=== PATIENT | female | born 1950 | race Caucasian/White ===

== ENCOUNTER 2017-07-17 08:15 | Outpatient (CLI) | payer MEDICARE ==
[2017-07-17] MEDS ORDERED: Iopamidol 370 76% 100 ML VIAL ONE (16:02)
== END 2017-07-17 08:16 | disposition home or self-care (01) ==
LOC: BICCT 08:15
PROVIDERS: ATTEND Internal Medicine Sleep Medicine
DX: R59.0 Localized enlarged lymph nodes (principal); R91.1 Solitary pulmonary nodule
CPT/HCPCS: 71260

== ENCOUNTER 2018-04-04 09:56 | Outpatient (CLI) | payer MEDICARE | END 2018-04-04 09:57 | disposition home or self-care (01) | LOC: BICMAMMO 09:56 | PROVIDERS: ATTEND Obstetrics & Gynecology | DX: Z12.31 Encounter for screening mammogram for malignant neoplasm of breast (principal); Z80.3 Family history of malignant neoplasm of breast | CPT/HCPCS: 77063; 77067 ==

== ENCOUNTER 2018-08-21 13:26 | Outpatient (CLI) | payer MEDICARE ==
--- NOTE | 2018-08-21 15:25 | CT ---
EXAM: Chest CT scan With contrast: HISTORY: Mediastinal adenopathy, follow-up COMPARISON: 07/17/2017 FINDINGS: There are some borderline size mediastinal lymph nodes and minimally enlarged right hilar nodes and s ome borderline left hilar nodes as well as some mildly enlarged axillary nodes bilaterally but overal l stable. Very small 0.2 x 0.4 cm stable nodule in the right apex. Small stable hiatal hernia. No pleural or pericardial effusion. The visualized upper abdomen is unremarkable. IMPRESSION: Stable appearing mediastinal, hilar, and axillary lymph nodes. Tiny stable nodule in the right lung apex. No significant change.
[2018-08-21] MEDS ORDERED: ISOVUE-370 76%-LOCM 1 ML ONE (16:54)
== END 2018-08-21 13:27 | disposition home or self-care (01) ==
LOC: BICCT 13:26
PROVIDERS: ATTEND Internal Medicine Pulmonary Disease
DX: R59.0 Localized enlarged lymph nodes (principal); R91.1 Solitary pulmonary nodule
CPT/HCPCS: 71260; 82565

== ENCOUNTER 2019-04-08 11:11 | Outpatient (CLI) | payer MEDICARE ==
--- NOTE | 2019-04-08 16:57 | MMO ---
Bilateral MAMMO Bilat Screen [facility]. CLINICAL HISTORY: Patient is 69 years old and is seen for screening. The patient has the following family history of breast cancer: mother; paternal grandfather and paternal aunt. The patient has no personal history of cancer. VIEWS: The views performed were: bilateral craniocaudal with tomosynthesis and bilateral mediolateral oblique with tomosynthesis. FILMS COMPARED: The present examination has been compared to prior imaging studies performed at [facility] on 03/10/2015, 03/23/2016, 03/27/2017 and 04/04/2018. This study has been interpreted with the assistance of computer-aided detection. MAMMOGRAM FINDINGS: There are scattered fibroglandular densities. There are no suspicious masses, suspicious calcifications, or new areas of architectural distortion. IMPRESSION: THERE IS NO MAMMOGRAPHIC EVIDENCE OF MALIGNANCY. A ROUTINE FOLLOW-UP MAMMOGRAM IN 1 YEAR IS RECOMMENDED. THE RESULTS OF THIS EXAM WERE SENT TO THE PATIENT. ACR BI-RADS Category 1 - Negative MAMMOGRAPHY NOTE: 1. A negative mammogram report should not delay a biopsy if a dominant of clinically suspicious mass is present. 2. Approximately 10% to 15% of breast cancers are not detected by mammography. 3. Adenosis and dense breasts may obscure an underlying neoplasm. Reported by: CEDRIKC KINCAID MD Electonically Signed: [id number]
== END 2019-04-08 11:12 | disposition home or self-care (01) ==
LOC: BICMAMMO 11:11
PROVIDERS: ATTEND Obstetrics & Gynecology
DX: Z12.31 Encounter for screening mammogram for malignant neoplasm of breast (principal); Z80.3 Family history of malignant neoplasm of breast
CPT/HCPCS: 77063; 77067

== ENCOUNTER 2019-07-22 13:00 | Outpatient (CLI) | payer MEDICARE, OTHER ==
--- NOTE | 2019-07-22 13:46 | CT ---
CT OF THE CHEST WITH IV CONTRAST INDICATION: Follow-up lymphadenopathy of the chest COMPARISON: CT of the thorax dated 07/17/2017 and 08/21/2018 FINDINGS: CHEST: Lungs: No suspicious nodule, airspace consolidation or mass is demonstrated. Small subcentimeter pulm onary nodule in the right lung apex on image 14 of series 3 is stable and likely benign. Pleural space: No effusion. Mediastinum: The shotty appearing mediastinal lymph nodes are stable appearing. The largest lymph nod e is seen within the right suprahilar region measuring 1.4 cm. Other mildly prominent hilar lymph nodes and axillary lymph nodes are stable. There are coronary artery and thoracic aortic calcificatio ns. Upper abdomen:Adrenal glands are normal appearing. Visualized aspects of the liver, spleen, pancreas and kidneys appear within normal limits. Osseous structures: No acute osseous abnormality. No destructive osteolytic or osteoblastic lesion i s identified. There is scattered degenerative and osteoarthritic changes. Soft tissues:Normal. IMPRESSION: 1. Stable shotty appearing lymph nodes in the mediastinum, hilar and axillary regions. 2. Benign pulmonary nodule of the right lung apex.
[2019-07-22] MEDS ORDERED: Iopamidol-370 76% 500 ML 1 ML ONE (14:53)
== END 2019-07-22 13:01 | disposition home or self-care (01) ==
LOC: BICCT 13:00
PROVIDERS: ATTEND Internal Medicine Pulmonary Disease
DX: R05 Cough (principal); R91.1 Solitary pulmonary nodule
CPT/HCPCS: 71260; Q9967

== ENCOUNTER 2020-04-13 10:34 | Outpatient (CLI) | payer MEDICARE ==
--- NOTE | 2020-04-13 11:09 | MMO ---
Bilateral MAMMO Bilat Screen [facility]. CLINICAL HISTORY: Patient is 70 years old and is seen for screening. The patient has the following family history of breast cancer: mother; paternal grandfather and paternal aunt. The patient has no personal history of cancer. VIEWS: The views performed were: bilateral craniocaudal with tomosynthesis and bilateral mediolateral oblique with tomosynthesis. FILMS COMPARED: The present examination has been compared to prior imaging studies performed at [facility] on 03/23/2016, 03/27/2017, 04/04/2018 and 04/08/2019. This study has been interpreted with the assistance of computer-aided detection. MAMMOGRAM FINDINGS: There are scattered fibroglandular densities. 1.5 cm mass upper outer left breast. Recommend left breast ultrasound. In the right breast, there are no suspicious masses, calcifications or areas of architectural distortion. IMPRESSION: FINDING IN THE LEFT BREAST REQUIRES ADDITIONAL EVALUATION. AN ULTRASOUND EXAM IS RECOMMENDED. THE RESULTS OF THIS EXAM WERE SENT TO THE PATIENT. ACR BI-RADS Category 0 - Incomplete: Need additional imaging evaluation. [facility] will notify the patient of the need for additional imaging services. MAMMOGRAPHY NOTE: 1. A negative mammogram report should not delay a biopsy if a dominant of clinically suspicious mass is present. 2. Approximately 10% to 15% of breast cancers are not detected by mammography. 3. Adenosis and dense breasts may obscure an underlying neoplasm. Reported by: FREEMAN STERN MD Electonically Signed: [id number]
== END 2020-04-13 10:35 | disposition home or self-care (01) ==
LOC: BICMAMMO 10:34
PROVIDERS: ATTEND Obstetrics & Gynecology
DX: Z12.31 Encounter for screening mammogram for malignant neoplasm of breast (principal); Z80.3 Family history of malignant neoplasm of breast
CPT/HCPCS: 77063; 77067

== ENCOUNTER 2020-04-24 14:36 | Outpatient (CLI) | payer MEDICARE ==
--- NOTE | 2020-04-24 15:26 | ULT ---
LIMITED LEFT BREAST ULTRASOUND: HISTORY: Abnormal mammogram of 04/13/2020. FINDINGS: Sonographic evaluation of the left upper outer breast demonstrates a 1.7 x 1.4 x 0.6 cm cyst at the 2 o'clock position, 7 mm from the nipple, corresponding to the mammographic finding. IMPRESSION: BIRADS category 2 - benign findings. Return to annual mammographic screening. POS: OFF
== END 2020-04-24 14:37 | disposition home or self-care (01) ==
LOC: BICMAMMO 14:36
PROVIDERS: ATTEND Obstetrics & Gynecology
DX: R92.8 Other abnormal and inconclusive findings on diagnostic imaging of breast (principal); N60.02 Solitary cyst of left breast

== ENCOUNTER 2020-04-24 14:43 | Outpatient (CLI) | payer MEDICARE ==
--- NOTE | 2020-04-24 15:20 | BD ---
DEXA BONE DENSITY STUDY: HISTORY: Postmenopausal. FINDINGS: Lumbar Spine: BMD (g/cm2) L1 1.187 T-Score: +1.8 L2 1.423 T-Score: +3.6 L3 1.375 T-Score: +2.6 L4 1.455 T-Score: +3.6 L1-L4 1.364 T-Score: +2.9 Femoral Neck: 0.832 T-Score: -0.1 Total Femur: 1.036 T-Score: +0.8 Impression: Normal bone mineral density of the lumbar spine and left femoral neck. POS: AH
== END 2020-04-24 14:44 | disposition home or self-care (01) ==
LOC: BICMAMMO 14:43
PROVIDERS: ATTEND Obstetrics & Gynecology
DX: Z13.820 Encounter for screening for osteoporosis (principal); M85.80 Other specified disorders of bone density and structure, unspecified site; M81.0 Age-related osteoporosis without current pathological fracture; Z79.890 Hormone replacement therapy
CPT/HCPCS: 77080

== ENCOUNTER 2021-03-02 10:13 | Outpatient (CLI) | payer MEDICARE | END 2021-03-02 10:14 | disposition home or self-care (01) | LOC: RAD 10:13 | PROVIDERS: ATTEND Internal Medicine Pulmonary Disease | DX: R06.00 Dyspnea, unspecified (principal) | CPT/HCPCS: 71046 ==

== ENCOUNTER 2021-05-26 13:08 | Outpatient (CLI) | payer MEDICARE | END 2021-05-26 13:09 | disposition home or self-care (01) | LOC: BICMAMMO 13:08 | PROVIDERS: ATTEND Family Medicine | DX: Z12.31 Encounter for screening mammogram for malignant neoplasm of breast (principal); Z80.3 Family history of malignant neoplasm of breast | CPT/HCPCS: 77063; 77067 ==

== ENCOUNTER 2022-03-02 10:14 | Outpatient (CLI) | payer MEDICARE | END 2022-03-02 10:15 | disposition home or self-care (01) | LOC: RAD 10:14 | PROVIDERS: ATTEND Internal Medicine Critical Care Medicine | DX: R06.00 Dyspnea, unspecified (principal) | CPT/HCPCS: 71046 ==

== ENCOUNTER 2022-04-05 12:48 | Outpatient (CLI) | payer MEDICARE, OTHER | END 2022-04-05 12:49 | disposition home or self-care (01) | LOC: SCSMRI 12:48 | PROVIDERS: ATTEND Specialist | DX: M51.17 Intervertebral disc disorders with radiculopathy, lumbosacral region (principal); M47.22 Other spondylosis with radiculopathy, cervical region; M48.02 Spinal stenosis, cervical region; M50.321 Other cervical disc degeneration at C4-C5 level; M50.322 Other cervical disc degeneration at C5-C6 level; M50.323 Other cervical disc degeneration at C6-C7 level; M47.813 Spondylosis without myelopathy or radiculopathy, cervicothoracic region; M48.03 Spinal stenosis, cervicothoracic region; M47.27 Other spondylosis with radiculopathy, lumbosacral region; M51.36 Other intervertebral disc degeneration, lumbar region; M47.816 Spondylosis without myelopathy or radiculopathy, lumbar region; M43.16 Spondylolisthesis, lumbar region; M48.061 Spinal stenosis, lumbar region without neurogenic claudication; M48.07 Spinal stenosis, lumbosacral region | CPT/HCPCS: 72141; 72148 ==

== ENCOUNTER 2022-04-17 21:00 | Emergency (ER) | payer MEDICARE, OTHER ==
[2022-04-17 21:42] LABS: #Eosinphils 0.4 thou/uL (0.0-0.7); #Lymphocytes 3.3 thou/uL (1.20-3.40); #Neutrophils 7.7 thou/uL (1.40-6.50); %Basophils 0.3 % (0.0-1.0); %Lymphocytes 26.5 % (21.0-51.0); %Monocytes 8.2 % (0.0-10.0); Hemoglobin 11.3 g/dL (12.0-16.0); Mean Corpuscular HGB CONC 32.3 g/dL (32.0-36.0); Mean Corpuscular Hemoglobin 25.7 pg (27.0-31.0); Mean Corpuscular Volume 79.6 fl (78.0-98.0); Mean Platelet Volume 8.4 fL (7.4-10.4); Platelet Count 228 10x3/uL (130-400); RBC Distribution Width 15.1 % (11.5-14.5); Red Blood Cell (RBC) Count 4.41 mill/uL (4.20-5.40); White Blood Cell (WBC) Count 12.4 10x3/uL (4.8-10.8)
[2022-04-17 21:57] LABS: ALT (SGPT) 26 U/L (8-55); AST (SGOT) 22 U/L (5-34); Albumin 4.1 g/dL (3.4-4.8); Alkaline Phosphatase 120 U/L (40-110); Anion Gap 13 mmol/L (10-20); BUN (Urea Nitrogen) 12 mg/dL (9.8-20.1); Bilirubin, Total 0.2 mg/dL (0.2-1.2); Calc. Creatinine Clearance 0 mL/min (70-130); Calcium 9.5 mg/dL (7.8-10.44); Carbon Dioxide 25 mmol/L (23-31); Chloride 103 mmol/L (98-107); Estimated GFR 83; Globulin 3.2 g/dL (2.4-3.5); Glucose 121 mg/dL (83-110); Protein, Total 7.3 g/dL (5.8-8.1); Sodium 137 mmol/L (136-145)
[2022-04-18] MEDS ORDERED: cloNIDine 0.1 MG TAB ONE (00:34)
[2022-04-18 01:09] LABS: Troponin I Less than 0.010 ng/mL (< 0.028)
== END 2022-04-18 02:02 | disposition home or self-care (01) ==
LOC: ERS 21:00
DX: I10 Essential (primary) hypertension (principal); R07.9 Chest pain, unspecified; E03.9 Hypothyroidism, unspecified; K21.9 Gastro-esophageal reflux disease without esophagitis; Z79.899 Other long term (current) drug therapy
CPT/HCPCS: 36415; 71045; 80053; 83880; 84484; 85025; 93005

== ENCOUNTER 2022-05-17 14:18 | Outpatient (CLI) | payer BC, MEDICARE, OTHER | END 2022-05-17 14:19 | disposition home or self-care (01) | LOC: BICMAMMO 14:18 | PROVIDERS: ATTEND Nurse Practitioner Family | DX: N64.4 Mastodynia (principal) | CPT/HCPCS: 76642; 77066; G0279 ==

== ENCOUNTER 2022-05-31 09:11 | Outpatient (CLI) | payer MEDICARE | END 2022-05-31 09:12 | disposition home or self-care (01) | LOC: BICMRI 09:11 | PROVIDERS: ATTEND Nurse Practitioner Family | DX: R92.8 Other abnormal and inconclusive findings on diagnostic imaging of breast (principal); N60.01 Solitary cyst of right breast; N60.02 Solitary cyst of left breast | CPT/HCPCS: 82565; A9577; C8908 ==

== ENCOUNTER 2023-03-11 11:46 | Emergency (ER) | payer BC, MEDICARE ==
[2023-03-11 14:19] LABS: #Monocytes 1.3 thou/uL (0.11-0.59); #Neutrophils 14.1 thou/uL (1.40-6.50); %Basophils 0.1 % (0.0-1.0); %Eosinophils 0.1 % (0.0-10.0); %Lymphocytes 8.5 % (21.0-51.0); %Monocytes 7.7 % (0.0-10.0); %Neutrophils 83.2 % (42.0-75.0); Hematocrit 29.7 % (36.0-47.0); Hemoglobin 8.8 g/dL (12.0-16.0); Mean Corpuscular HGB CONC 29.6 g/dL (32.0-36.0); Mean Corpuscular Hemoglobin 21.9 pg (27.0-31.0); Mean Corpuscular Volume 73.9 fl (78.0-98.0); Mean Platelet Volume 9.8 fL (7.4-10.4); Platelet Count 367 10x3/uL (130-400); RBC Distribution Width 16.1 % (11.5-14.5); Red Blood Cell (RBC) Count 4.02 mill/uL (4.20-5.40); White Blood Cell (WBC) Count 16.9 10x3/uL (4.8-10.8)
[2023-03-11 14:37] LABS: Anisocytosis SLIGHT = 6-15 cells HPF (0-5); CellaVision Operator ID LAB.MJL; Hypochromia SLIGHT = 6-15 cells HPF (0-5); Microcytosis SLIGHT = 6-15 cells HPF (0-5); Ovalocytes SLIGHT = 2-5 cells HPF (0-1); Platelet Adequacy Comment Platelets Normal; Polychromasia SLIGHT = 2-3 cells HPF (0-2)
[2023-03-11 14:45] LABS: ALT (SGPT) 25 U/L (8-55); AST (SGOT) 19 U/L (5-34); Albumin 4.4 g/dL (3.4-4.8); Alkaline Phosphatase 104 U/L (40-110); Anion Gap 16 mmol/L (10-20); BUN (Urea Nitrogen) 14 mg/dL (9.8-20.1); Bilirubin, Total 0.3 mg/dL (0.2-1.2); CK (CPK) 54 U/L (29-168); Calc. Creatinine Clearance 0 mL/min (70-130); Calcium 9.8 mg/dL (7.8-10.44); Carbon Dioxide 23 mmol/L (23-31); Chloride 100 mmol/L (98-107); Estimated GFR 70; Globulin 3.6 g/dL (2.4-3.5); Glucose 201 mg/dL (83-110); Lipase 4 U/L (8-78); Potassium 3.4 mmol/L (3.5-5.1); Sodium 136 mmol/L (136-145)
[2023-03-11 15:01] LABS: Bacteria/HPF None Seen HPF (None Seen); Bilirubin Negative (Negative); Blood, Urine Negative (Negative); CAUTI Indications for Culture Pelvic or flank pain; Clarity Clear (Clear); Glucose, Urine (Dipstick) Normal (Negative); Ketone, Urine Negative (Negative); Leukocyte Negative Leu/uL (Negative); Nitrite Negative (Negative); Protein, Urine (Dipstick) 20 mg/dL (Neg-Trace); RBC/HPF 0-3 HPF (0-3); Specific Gravity, Urine 1.026 (1.002-1.036); Squamous Epithelial 0-3 HPF (0-3); Urobilinogen Normal mg/dL (Less than 2); WBC/HPF 0-3 HPF (0-3)
[2023-03-11 15:03] LABS: Urine Culture Reflex No No
[2023-03-11] MEDS ORDERED: Morphine 4 MG/ML VIAL ONE (15:12)
[2023-03-11] MEDS ORDERED: predniSONE 20 MG TAB ONE (15:12)
[2023-03-11] MEDS ORDERED: Ketorolac Tromethamine 30 MG/ML VIAL ONE (15:13)
== END 2023-03-11 16:40 | disposition home or self-care (01) ==
LOC: ERS 11:46
DX: M54.9 Dorsalgia, unspecified (principal); E03.9 Hypothyroidism, unspecified; K21.9 Gastro-esophageal reflux disease without esophagitis; I10 Essential (primary) hypertension
CPT/HCPCS: 36415; 72131; 80053; 81001; 82550; 83690; 85025; 96372; J1885; J2270; J7512

== ENCOUNTER 2023-08-08 09:40 | Outpatient (CLI) | payer MEDICARE ==
[2023-08-08 10:34] LABS: Hematocrit 38.3 % (34.9-44.5); Hemoglobin 12.9 g/dL (12.0-15.5); Mean Corpuscular HGB CONC 33.7 g/dL (32.0-36.0); Mean Corpuscular Hemoglobin 30.4 pg (27.0-33.0); Mean Corpuscular Volume 90.3 fl (81.6-98.3); Mean Platelet Volume 10.1 fl (7.4-10.4); Platelet Count 263 10x3/uL (150-450); RBC Distribution Width 13.1 % (11.5-14.5); Red Blood Cell (RBC) Count 4.24 10x6/uL (3.90-5.03); White Blood Cell (WBC) Count 9.3 10x3/uL (3.5-10.5)
[2023-08-08 10:59] LABS: INR-International Normal Ratio 0.9; PTT 29.1 sec (22.0-33.0); Prothrombin Time 10.2 sec (9.5-12.1)
[2023-08-08 11:07] LABS: Anion Gap 12 mmol/L (10-20); BUN (Urea Nitrogen) 14 mg/dL (9.8-20.1); Calc. Creatinine Clearance 0 mL/min (70-130); Calcium 9.9 mg/dL (7.8-10.44); Carbon Dioxide 26 mmol/L (23-31); Chloride 103 mmol/L (98-107); Estimated GFR 75; Glucose 89 mg/dL (83-110); Potassium 4.3 mmol/L (3.5-5.1); Sodium 137 mmol/L (136-145)
== END 2023-08-08 09:41 | disposition home or self-care (01) ==
LOC: LABBT 09:40
PROVIDERS: ATTEND Surgery
DX: Z01.818 Encounter for other preprocedural examination (principal); M48.061 Spinal stenosis, lumbar region without neurogenic claudication; M54.16 Radiculopathy, lumbar region
CPT/HCPCS: 80048; 85027; 85610; 85730; 93005; 93010

== ENCOUNTER 2023-08-10 09:38 | Inpatient (IN) | payer MEDICARE ==
[2023-08-08 10:09] VITALS: BMI 37.5
[2023-08-10] MEDS ORDERED: PROPOFOL 20 ML ONE (10:48)
[2023-08-10] MEDS ORDERED: Fentanyl 250 MCG/5 ML VIAL ONE (10:48)
[2023-08-10] MEDS ORDERED: Thrombin 5000 UNITS/5 ML VIAL ONE (11:29)
[2023-08-10] MEDS ORDERED: Vancomycin 1 GM VIAL ONE (11:29)
[2023-08-10] MEDS ORDERED: Dexamethasone 20 MG/5 ML VIAL ONE (11:32)
[2023-08-10] MEDS ORDERED: Ondansetron PF 4 MG/2 ML Vial ONE (11:32)
[2023-08-10] MEDS ORDERED: Albumin 5% 500 ML ONE (11:38)
[2023-08-10] MEDS ORDERED: Sodium Chloride 0.9% 100 ML ONE (11:39)
[2023-08-10] MEDS ORDERED: CEFAZOLIN 2 GM VIAL ONE (11:39)
[2023-08-10] MEDS ORDERED: Ketorolac Tromethamine 30 MG (1 mL) VIAL ONE (11:50)
[2023-08-10] MEDS ORDERED: Rocuronium Bromide 10 MG/ML (10ML VIAL) ONE (11:50)
[2023-08-10] MEDS ORDERED: Glycopyrrolate 0.2 MG/ML 5 ML SYRINGE ONE (12:26)
[2023-08-10] MEDS ORDERED: PHENYLEPHRINE-NS 100 MCG/ML 10 ML SYRINGE ONE ×2 (12:37→14:02)
[2023-08-10] MEDS ORDERED: Esmolol 100 MG/10 ML VIAL ONE (12:45)
[2023-08-10] MEDS ORDERED: SUGAMMADEX SODIUM 200 MG/2 ML VIAL ONE (13:42)
[2023-08-10] MEDS ORDERED: Acetaminophen/Codeine 30-300mg Tablet PO PRN (14:33)
[2023-08-10] MEDS ORDERED: diphenhydrAMINE 25 MG CAP PO PRN (14:33)
[2023-08-10] MEDS ORDERED: Acetaminophen 325 MG TAB PO PRN (14:33)
[2023-08-10] MEDS ORDERED: Milk Of Magnesia 30 ML UDCUP PO PRN (14:33)
[2023-08-10] MEDS ORDERED: traMADol HCl 50 MG TAB PO PRN (14:33)
[2023-08-10] MEDS ORDERED: Promethazine HCl 12.5 MG in Sodium Chloride 0.9% 50 ML IVPB PRN (14:37)
[2023-08-10] MEDS ORDERED: hydrALAZINE 20 MG/ML VIAL SLOW IVP PRN (14:38)
[2023-08-10] MEDS ORDERED: Non-Formulary Item 1 EACH (Lansoprazole [Prevacid] 30 MG Capsule.Dr) PO PRN (14:40)
[2023-08-10] MEDS ORDERED: Fluticasone Propionate Nasal Spray 16 gm Bottle NASAL PRN (14:50)
[2023-08-10] MEDS ORDERED: Azelastine 137 MCG/NASAL Spray 30 ML NS PRN (14:51)
[2023-08-10] MEDS: HYDROcodone/Acetaminophen 7.5/325 mg Tablet PO PRN (16:39)
[2023-08-10] MEDS: Morphine 2 MG/ML VIAL SLOW IVP PRN (18:00)
[2023-08-10] MEDS: Sodium Chloride 0.9% 1,000 ML IV SCH (18:27)
[2023-08-10] MEDS: Mometasone 100 MCG/Formoterol 5 MCG 120 PUFF INHALER INH SCH (19:18)
[2023-08-10] MEDS: Ascorbic Acid 500 mg Chewable Tablet PO SCH (20:43)
[2023-08-10] MEDS: Losartan 25 MG TAB PO SCH (20:43)
[2023-08-10] MEDS: Multivit, Therapeutic 1 TAB PO SCH (20:44)
[2023-08-10] MEDS: Hydrochlorothiazide 25 MG TAB PO SCH (20:44)
[2023-08-10] MEDS: Zinc Sulfate 220 MG CAP PO SCH (20:44)
[2023-08-10] MEDS: CEFAZOLIN 2 GM in Sodium Chloride 0.9% 100 ML IVPB SCH (20:47)
[2023-08-10] MEDS: Calcium Carbonate 600 MG TAB PO SCH (21:39)
[2023-08-10] MEDS: Multivitamin w/Zinc Stress 1 TAB PO SCH (21:39)
[2023-08-11 05:09] LABS: #Basophils Less than 0.03 10x3/uL (0.0-0.2); #Eosinphils Less than 0.03 10x3/uL (0.0-0.7); %Basophils 0.1 % (0.0-1.0); %Eosinophils 0.1 % (0.0-10.0); %Lymphocytes 10.3 % (21.0-51.0); %Monocytes 5.9 % (0.0-10.0); %Neutrophils 83.2 % (42.0-75.0); Hematocrit 31.9 % (36.0-47.0); Hemoglobin 10.8 g/dL (12.0-16.0); Mean Corpuscular HGB CONC 33.9 g/dL (32.0-36.0); Mean Corpuscular Hemoglobin 30.4 pg (27.0-31.0); Mean Corpuscular Volume 89.9 fL (78.0-98.0); Mean Platelet Volume 10.3 fL (7.4-10.4); Platelet Count 204 10x3/uL (130-400); RBC Distribution Width 12.9 % (11.5-14.5); Red Blood Cell (RBC) Count 3.55 mill/uL (4.20-5.40)
[2023-08-11 05:36] LABS: Anion Gap 14 mmol/L (10-20); BUN (Urea Nitrogen) 12 mg/dL (9.8-20.1); Calc. Creatinine Clearance 96 mL/min (70-130); Calcium 9.3 mg/dL (7.8-10.44); Carbon Dioxide 23 mmol/L (23-31); Chloride 103 mmol/L (98-107); Estimated GFR 80; Glucose 124 mg/dL (83-110); Sodium 136 mmol/L (136-145)
[2023-08-11] MEDS: Levothyroxine Sodium 25 MCG TAB PO SCH (06:03)
[2023-08-11] MEDS: Amlodipine 5 MG TAB PO SCH (09:08)
[2023-08-11] MEDS: Pantoprazole DR 40 MG TAB PO SCH (09:09)
[2023-08-11] MEDS: Escitalopram Oxalate 20 mg Tablet PO SCH (09:09)
[2023-08-11] MEDS: Ketorolac Tromethamine 30 MG (1 mL) VIAL IVP PRN (10:07)
[2023-08-12 05:45] LABS: #Basophils Less than 0.03 10x3/uL (0.0-0.2); %Basophils 0.2 % (0.0-1.0); %Eosinophils 0.4 % (0.0-10.0); %Lymphocytes 13.9 % (21.0-51.0); %Monocytes 9.8 % (0.0-10.0); %Neutrophils 75.1 % (42.0-75.0); Hematocrit 33.2 % (36.0-47.0); Hemoglobin 10.9 g/dL (12.0-16.0); Mean Corpuscular HGB CONC 32.8 g/dL (32.0-36.0); Mean Corpuscular Hemoglobin 30.3 pg (27.0-31.0); Mean Corpuscular Volume 92.2 fL (78.0-98.0); Mean Platelet Volume 10.1 fL (7.4-10.4); Platelet Count 198 10x3/uL (130-400); RBC Distribution Width 13.2 % (11.5-14.5)
[2023-08-12 06:36] LABS: Anion Gap 14 mmol/L (10-20); BUN (Urea Nitrogen) 11 mg/dL (9.8-20.1); Calc. Creatinine Clearance 102 mL/min (70-130); Carbon Dioxide 25 mmol/L (23-31); Chloride 101 mmol/L (98-107); Estimated GFR 87; Glucose 116 mg/dL (83-110); Potassium 3.6 mmol/L (3.5-5.1); Sodium 136 mmol/L (136-145)
[2023-08-12 07:13] LABS: Bacteria/HPF None Seen HPF (None Seen); Bilirubin Negative (Negative); Blood, Urine Negative (Negative); CAUTI Indications for Culture Fever or rigors; Clarity Clear (Clear); Glucose, Urine (Dipstick) Normal (Negative); Ketone, Urine Negative (Negative); Leukocyte Negative Leu/uL (Negative); Nitrite Negative (Negative); Protein, Urine (Dipstick) Negative (Neg-Trace); RBC/HPF 0-3 HPF (0-3); Specific Gravity, Urine 1.009 (1.002-1.036); Squamous Epithelial None Seen HPF (0-3); Urobilinogen Normal mg/dL (Less than 2); WBC/HPF None Seen HPF (0-3); pH, Urine 5.5 (5.0-9.0)
[2023-08-12 07:26] LABS: Urine Culture Reflex No No
[2023-08-13] MEDS: tiZANidine HCl 4 MG TAB PO PRN (08:47)
[2023-08-13 11:48] VITALS: BP 100/64; TEMP 98
== END 2023-08-13 12:54 | disposition home or self-care (01) | DRG 520 ==
LOC: SDC 09:38 → MSONC 14:33 → OBSVTOIN 08-12 18:36
PROVIDERS: ADMIT Surgery; ATTEND Surgery
PROC: 00NY0ZZ Release Lumbar Spinal Cord, Open Approach (ICD-10-PCS; principal; 2023-08-10)
PROC: 01NB0ZZ Release Lumbar Nerve, Open Approach (ICD-10-PCS; 2023-08-10)
PROC: 01NR0ZZ Release Sacral Nerve, Open Approach (ICD-10-PCS; 2023-08-10)
DX: M48.062 Spinal stenosis, lumbar region with neurogenic claudication (principal); M54.16 Radiculopathy, lumbar region; I10 Essential (primary) hypertension; G47.33 Obstructive sleep apnea (adult) (pediatric); M19.90 Unspecified osteoarthritis, unspecified site; E66.9 Obesity, unspecified; F32.A Depression, unspecified; F41.9 Anxiety disorder, unspecified; Z85.828 Personal history of other malignant neoplasm of skin; Z98.42 Cataract extraction status, left eye; Z98.41 Cataract extraction status, right eye; Z90.710 Acquired absence of both cervix and uterus; Z99.81 Dependence on supplemental oxygen
CPT/HCPCS: 36415; 71045; 80048; 81001; 85025; A4314; J1100; J1885; J2272; J2405; J2704; J3010; J3370; J3490; J7050; P9045